=== PATIENT | female | born 1975 | race Caucasian/White ===

== ENCOUNTER 2022-11-16 07:11 | Day surgery (SDC) | payer BC, SELFPAY ==
[2022-11-16 07:26] VITALS: BMI 24.9
[2022-11-16 07:36] VITALS: BP 112/75; PULSE 68; RESP 16; TEMP 36.4; O2SAT 98
[2022-11-16 07:36] LABS: Ur HCG Qualitative* Negative (Negative)
[2022-11-16] MEDS: LACTATED RINGERS 1000 ML 1,000 ML 100 ML IV (07:45)
[2022-11-16] MEDS: SODIUM CHLORIDE 0.9 % (FLUSH) 10 ML SYRINGE IVF (07:46)
[2022-11-16] MEDS: LIDOCAINE 1% MDV 20 ML INJECTION (10:01)
[2022-11-16] MEDS: BUPIVACAINE 0.25% 30 ML INJECTION (10:01)
[2022-11-16 10:36] VITALS: BP 107/78; PULSE 74; RESP 16; TEMP 36.3; O2SAT 97
--- NOTE | 2022-11-16 10:38 | P.GYNPRC_ITS ---
Procedure Note Date of procedure: 11/16/22 Pre-op diagnosis: Menorrhagia, fragments of polyp on endometrial biopsy Post-op diagnosis: same Procedure: Hysteroscopy D&C Polypectomy Debbie endometrial ablation Anesthesia: MAC and local Complications: None Surgeon: Chrissy Edgar MD Asset Management Analyst: Cortney Gan Estimated blood loss (mL): 5 Pathology: specimen obtained, sent to pathology Condition: stable Disposition: same day Findings: Multiple small endometrial polyps in a background of normal-appearing endometrium. Fluid deficit 380 mL. Procedure Description: After obtaining informed consent, the patient was taken to the operating room where she received monitored anesthesia care. She was prepared and draped in t he normal sterile fashion, in the dorsal lithotomy position. An open-sided bivalve speculum was introduced into the vagina and the cervix visualized. The anterior lip of the cervix was grasped with a single-tooth tenaculum for traction. A paracervical block was then administered using a total of 20 mL of a 50/50 mixture of 0.25% Marcaine and 1% lidocaine plain. The uterus was gently sounded. Sound length was 8 cm. The cervix length was determined to be 3.5 cm using Hegar dilators, yielding a uterine cavity length of 4.5 cm. The cervix was gently dilated to a # 6 Hegar dilator. A hyster oscope was then advanced under direct visualization through the cervix into the uterine cavity. Sterile normal saline was used as distending medium. The uterine cavity was carefully inspected with the findings noted above. The TruClear morcellator was then inserted through the hysteroscope. The soft tissue blade was then used to excise the polypoid tissue. The hysteroscope was then removed. The endometrial lining was then sharply curetted and a gritty feel was felt throughout. The cervix was further dilated to a #8 dilator The Debbie device was then set to a cavity length of 4.5 cm, inserted through the cervical os into the uterine cavity to the level of the fundus, and deployed. The device was sealed against the cervix. The safety checks were then passed x2 and the 2-minute treatment cycle initiated. Following completion of the treatment cycle, the Debbie device was removed. The hysteroscope was advanced again into the uterine cavity and the uterine cavity inspected. A good ablation was noted from the internal os to fundus and to the cornua bilaterally. Pictures were taken for documentation purposes. The hysteroscope was removed. The tenaculum was removed. There was little bleeding from the tenaculum site, which was controlled with direct pressure sponge stick. All instruments were then removed. The patient tolerated the procedure well. Sponge, lap, needle, and instrument counts reported as correct x2. The patient was taken to the recovery room awake in a stable condition.
--- NOTE | 2022-11-16 10:40 | W.ANESCHARGE ---
Anesthesia Charges Start Date/Time Anesthesia Start Date: 11/16/22 Anesthesia Start Time: 09:42 Stop Date/Time Anesthesia Stop Date: 11/16/22 Anesthesia Stop Time: 10:32
[2022-11-16 10:50] VITALS: BP 121/88; PULSE 67; RESP 16; O2SAT 98
[2022-11-16 11:06] VITALS: BP 120/84; PULSE 69; RESP 16; TEMP 36.3; O2SAT 99
--- NOTE | 2022-11-16 11:11 | W.ANESCHARGE ---
Anesthesia Charges Start Date/Time Anesthesia Start Date: 11/16/22 Anesthesia Start Time: 09:42 Stop Date/Time Anesthesia Stop Date: 11/16/22 Anesthesia Stop Time: 10:32
== END 2022-11-16 11:15 | disposition home or self-care (01) ==
PROVIDERS: Anesthesiology; PCP Student in an Organized Health Care Education/Training Program; Visit Provider Obstetrics & Gynecology
PROC: 0UF98ZZ Fragmentation in Uterus, Via Natural or Artificial Opening Endoscopic (ICD-10-PCS; CPT 58563; principal; 2022-11-16 08:30)
DX: N92.0 Excessive and frequent menstruation with regular cycle (principal); N84.0 Polyp of corpus uteri
CPT/HCPCS: 58563; 58558; 81025; 88305; 952; J0665; J2250; J2704; J3010; J7120